=== PATIENT | male | born 1955 | race Two or more races ===

== ENCOUNTER 2024-01-21 16:42 | Emergency (ER) | payer MEDICARE, MEDICAID, SELFPAY ==
[2024-01-21 16:57] VITALS: BP 110/63; PULSE 97; RESP 18; TEMP 36.7; O2SAT 95; BMI 33.3
--- NOTE | 2024-01-21 17:08 | XR_ITS ---
Examination: CT brain head without contrast. 2-D sagittal coronal reconstructions Date and time of exam:January 21, 2024 at 1838 hours INDICATIONS: Headaches nausea vomiting one week CTDI: vol (mGy):50.9 DLP: (mGycm):977 Technique: Multiple CT axial sections of the brain have been obtained, 5 mm slice thickness. Contrast has not been administered. 2-D sagittal, coronal reconstructions have been obtained Low dose protocols were performed. One or more of the following dose reduction techniques were used; automated exposure control, adjustment of the mA and/or KV according to patient size, use of iterative reconstruction technique. Findings: No significant ventricular enlargement. Intra-axial or extra-axial hemorrhage density is not seen. No mass effect or midline shift Basal cisterns are not remarkable. Fourth ventricle is midline. Cranial vault intact. Impression: Negative for acute hemorrhage, mass effect or midline shift Advise clinical correlation and follow-up accordingly
--- NOTE | 2024-01-21 17:09 | EDNOTE_ITS ---
Nausea/Vomit./Diarrhea-RME/HPI General Chief complaint: Nausea/Vomiting/Diarrhea Stated complaint: dizziness, n/v, generalized weakness Time Seen by Provider: 01/21/24 16:51 Source: patient Arrival date/time: 01/21/24 16:42 68-year-old male with past medical history of hypertension and diabetes presents emergency department complaining of a headache, dizziness, nausea, and diarrhea after starting Ozempic a week ago. Patient denies any fever, chills, cough, shortness of breath, dysuria, abdominal pain, or any other associated symptom. Mode of arrival: ambulatory Limitations: no limitations Related Data Home Medications ?Medication ?Instructions ?Recorded ?Confirmed hydrochlorothiazide 12.5 mg capsule 12.5 mg PO QAM 08/30/21 lisinopril 20 mg tablet 20 mg PO QDAY 08/30/21 metformin 1,000 mg tablet 1,000 mg PO BID 08/30/21 Previous Rx's ?Medication ?Instructions ?Recorded capsaicin 0.1 % topical cream 1 applic topical TID PRN Severe 08/25/21 (Arthritis Pain Relief (capsaicin)) Shoulder pain #60 grams ibuprofen 800 mg tablet 800 mg PO Q8H PRN pain #30 tabs 08/25/21 acetaminophen 500 mg tablet 500 mg PO Q6H PRN pain #30 tabs 09/08/21 (Tylenol Extra Strength) ondansetron 4 mg disintegrating 4 mg PO Q8H PRN nausea and 01/21/24 tablet vomiting #10 tabs Allergies Allergy/AdvReac Type Severity Reaction Status Date / Time No Known Allergies Allergy Verified 01/21/24 16:43 Review of Systems Review of Systems Systems Reviewed: All systems reviewed, normal except as documented Constitutional Constitutional: Reports system reviewed and no additional complaints, except as documented, Denies body ache(s), Denies chills, Denies fever(s) and Reports headache(s) Eyes Eyes: Reports system reviewed and no additional complaints, except as documented and Denies change in vision ENT Ears, Nose, Mouth, and Throat: Reports system reviewed and no additional complaints, except as documented, Denies disequilibrium, Denies dizziness, Reports headache(s), Denies sore throat and Reports vertigo Cardiovascular Cardiovascular: Reports system reviewed and no additional complaints, except as documented, Denies chest pain and Denies dyspnea Respiratory Respiratory: Reports system reviewed and no additional complaints, except as documented, Denies chest congestion, Denies cough and Denies dyspnea Gastrointestinal Gastrointestinal: Reports system reviewed and no additional complaints, except as documented, Denies abdominal pain, Reports diarrhea, Reports nausea and Denies vomiting Musculoskeletal Musculoskeletal: Reports system reviewed and no additional complaints, except as documented, Denies abnormal gait and Denies arthralgias Integumentary/Breasts Skin/Breast: Reports system reviewed and no additional complaints, except as documented, Denies erythema, Denies rash and Denies wounds Neurologic Neurologic: Reports system reviewed and no additional complaints, except as documented, Denies abnormal gait, Denies disequilibrium, Denies dizziness, Reports headache(s) and Reports vertigo Past Medical History Past Medical History CARDIAC: Positive Hypercholesterolemia and Hypertension; Negative Congestive Heart Failure RESPIRATORY: Negative Chronic Obstructive Pulmonary Disease (COPD) GENITOURINARY: Negative Renal Disease ENDOCRINE: Positive Diabetes Mellitus Type 2; Negative Diabetes Mellitus Type 1 Social History SMOKING STATUS: Never smoker ED Exam General Limitations: Present no limitations General appearance: Present alert and in no apparent distress Head Head exam: Present atraumatic Eye Eye exam: Present normal appearance, PERRL and EOMI ENT ENT exam: Present normal exam, normal oropharynx and mucous membranes moist Neck Neck exam: Present normal inspection, full ROM and trachea midline Chest Chest inspection: Present normal inspection and symmetric chest wall rise Respiratory Respiratory exam: Present normal lung sounds bilaterally Cardiovascular Cardiovascular exam: Present regular rate, normal rhythm and normal heart sounds Abdominal Exam Abdominal exam: Present soft and normal bowel sounds; Absent tenderness, Dudley's sign or tenderness at McBurney's Point Extremities Exam Extremities exam: Present normal inspection and full ROM Back Exam Back exam: Present normal inspection and full ROM Neurological Exam Neurological exam: Present alert, oriented X3 and CN II-XII intact Psychiatric Psychiatric exam: Present normal affect and normal mood Skin Skin exam: Present warm, dry, intact and normal color Course Quality Measures none Orders Category Date Time Status Bedside COVID-19 Antigen Test NOW Care 01/21/24 17:08 Completed Bedside Influenza A&B Antigen Test NOW Care 01/21/24 17:[address] head/brain wo con Stat Exams 01/21/24 17:08 Completed CBC Stat Lab 01/21/24 17:24 Completed CMP [Comprehensive Metabolic Panel] Stat Lab 01/21/24 17:24 Completed Lipase Stat Lab 01/21/24 17:24 Completed Urinalysis, C/S if Indicated Stat Lab 01/21/24 17:23 Completed Vital Signs Vital signs: Vital Signs Temperature 98.1 F 01/21/24 16:57 Pulse Rate 97 01/21/24 16:57 Respiratory Rate 18 01/21/24 16:57 Blood Pressure 110/63 01/21/24 16:57 Pulse Oximetry (%) 95 01/21/24 16:57 Oxygen Delivery Method Room Air 01/21/24 16:57 95% RA WNL. Nausea/Vomiting/Diarrhea MDM Narrative MDM Narrative:: 68-year-old male with past medical history of hypertension and diabetes presents emergency department complaining of a headache, dizziness, nausea, and diarrhea after starting Ozempic a week ago. Patient denies any fever, chills, cough, shortness of breath, dysuria, abdominal pain, or any other associated symptom. CBC was unremarkable for any leukocytosis. CMP unremarkable other than mildly elevated lipase and elevated glucose the patient is diabetic. CT of head negative for any acute process Patient appears nontoxic and hemodynamically stable. Patient's abdomen is soft and nontender. Patient GCS of 15 with steady gait. Patient discharged instructed to have close follow-up with primary care provider and discuss Ozempic dose might need to be tapered down. Instructed to return to emergency department for any worsening symptoms or as needed. Patient data External records reviewed:: [facility] previous records Clinical information provided by:: patient Social determinants that could affect healthcare access:: none Patient has the following chronic illnesses:: See chart How is presenting disease/condition affected by chronic disease/condition?: uneffected by Evaluation data The following diagnostics were reviewed and interpreted by me:: lab results and radiology exam(s) Lab and/or radiology exams considered but not ordered:: Ordered Interpretation Summary: Interpreted by me Medications / Prescriptions Medications / Prescriptions considered but not ordered:: N/A Medication administrations:: n/a Consultations Consultation(s) initiated? (list below): No Diagnosis Nausea Differential Diagnosis: traveler's diarrhea, food poisoning, gastroenteritis, drug-induced nausea and vomiting and dehydration Most likely diagnosis given after review of the tests above:: Nausea and vomiting Admission Indicated Admission indicated?: not indicated Admission Request Was there a request for admission?: No Disposition Plan Disposition Plan: Discharge Discharge Attestation Discharge Attestation: The patient and all family members were given an opportunity to ask questions and understood the discharge instructions. Discharge instructions specifically effects, indications for sooner follow up or return to the emergency department, and the expected course of current diagnosis. Patient condition: Stable Discharge Plan Plan Patient Disposition: HOME (Self Care) Disposition Comment: Stable Prescriptions/Referrals Prescriptions/Med Rec: New ondansetron 4 mg tablet,disintegrating 4 mg PO Q8H PRN (Reason: nausea and vomiting) Qty: 10 0RF No Action metformin 1,000 mg tablet 1,000 mg PO BID lisinopril 20 mg tablet 20 mg PO QDAY hydrochlorothiazide 12.5 mg capsule 12.5 mg PO QAM ibuprofen 800 mg tablet 800 mg PO Q8H PRN (Reason: pain) Qty: 30 0RF capsaicin [Arthritis Pain Relief(capsaic)] 0.1 % cream 1 applic topical TID PRN (Reason: Severe Shoulder pain) Qty: 60 1RF Rx Instructions: do not wash area for at least 30 min after application acetaminophen [Tylenol Extra Strength] 500 mg tablet 500 mg PO Q6H PRN (Reason: pain) Qty: 30 0RF Referrals: No Primary/Family,Physician [Referring Provider] - In 1 week Problem List Clinical Impression: Nausea & vomiting Patient/Caregiver Discharge Instructions Education Materials: Self-Care for Vomiting and Diarrhea, ED Diet for Vomiting or ... Additional Instructions: Take medication as prescribed. Please follow-up with primary care provider in 24 to 48 hours for possible change in dosage to Ozempic medication. Drink plenty of fluids and stay hydrated. Return to the emergency department for any worsening symptoms or as needed. Print Language: Jordanian Stand Alone Forms: [employer] Award Info., Patient Portal Info Letter Attestation Attestation The patient was seen by the midlevel practitioner. I, the co-signing physician, was present during the entire ER visit. While I did not physically examine the patient, I was available for consultation as needed.
[2024-01-21 17:36] LABS: Collection Type, Urine Clean Catch
[2024-01-21 18:09] LABS: Bilirubin,Urine Negative (Negative); Blood,Urine Negative (Negative); Clarity,Urine Clear (Clear/Hazy); Color,Urine Lt-Yellow (Lt Yel-Yel); Culture Indicated,Urine Not Indicated; Glucose, Urine 4+ (Negative); Ketones,Urine Negative (Negative); Leukocyte Esterase,Urine Positive (Negative); Nitrite,Urine Negative (Negative); Protein,Urine Negative (Neg - Trace); RBC,Urine < 1 /hpf (0-3); Specific Gravity,Urine 1.029 (1.001-1.035); Squamous Epithelial Cell,Urine 1 /hpf (0-5); Urobilinogen,Urine Negative mg/dL (0.0-1.0); WBC,Urine 7 /hpf (0-5)
[2024-01-21 18:10] LABS: Basophils # (Auto) 0.1 Thou/mm3 (0.0-0.2); Basophils % (Auto) 1 % (0-2.5); Eosinophils # (Auto) 0.2 Thou/mm3 (0.0-0.5); Eosinophils % (Auto) 2 % (0-10); Hematocrit 43.1 % (41.0-53.0); Hemoglobin 15.3 g/dL (13.5-16.0); Immature Granulocytes % (Auto) 0 % (0-0); Immature Granulocytes Auto 0.02 Thou/mm3 (0.00-0.00); Lymphocytes # (Auto) 2.8 Thou/mm3 (1.0-4.8); Lymphocytes % (Auto) 31 % (10-50); Mean Corpuscular HGB Conc 35.5 g/dl (31.0-37.0); Mean Corpuscular Volume 82 fL (80-100); Monocytes # (Auto) 0.8 Thou/mm3 (0.0-0.8); Monocytes % (Auto) 9 % (0-12); Neutrophils # (Auto) 5.2 Thou/mm3 (1.8-7.7); Neutrophils % (Auto) 58 % (37-80); Nucleated Red Blood Cell % 0 /100 WBC (0); Platelet Count 304 Thou/mm3 (140-440); RDW Standard Deviation 38.4 fL (35.1-43.9); Red Blood Count 5.28 Miln/mm3 (4.50-5.90); White Blood Count 9.1 Thou/mm3 (3.8-10.6)
[2024-01-21 18:30] LABS: Alanine Aminotransferase 27 U/L (10-49); Albumin, Serum 4.7 gm/dL (3.4-4.8); Albumin/Globulin Ratio 1.4 (1.2-2.2); Alkaline Phosphatase 84 U/L (46-116); Anion Gap 14 (7-16); Aspartate Amino Transferase 35 U/L (0-34); BUN/Creatinine Ratio 18 Ratio (12-20); Bilirubin,Total 0.7 mg/dL (0.3-1.2); Blood Urea Nitrogen 24 mg/dL (9-23); Calcium 10.1 mg/dL (8.3-10.6); Calcium (Corrected) 10.1 mg/dL (8.5-10.1); Carbon Dioxide 22.8 mMol/L (20.0-31.0); Chloride 94 mMol/L (98-107); Creatinine (Component) 1.3 mg/dL (0.6-1.3); Estimated Creatinine Clearance 54.8 mL/min (>60); Globulin 3.3 gm/dL (2.3-3.5); Glucose 206 mg/dL (74-106); Lipase 69 U/L (12-53); Osmolality,Calculated 272 (275-295); Potassium 4.1 mMol/L (3.4-5.1); Sodium 131 mMol/L (136-145); eGFR 59 See Note
[2024-01-21 20:10] VITALS: BP 136/45; PULSE 87; RESP 19; TEMP 36.6; O2SAT 99
== END 2024-01-21 20:10 | disposition home or self-care (01) ==
PROVIDERS: Emergency Provider Emergency Medicine; PCP Family Medicine
DX: R11.2 Nausea with vomiting, unspecified (principal); R51.9 Headache, unspecified
CPT/HCPCS: 36415; 70450; 80053; 81001; 83690; 85025; 87400; 87811; 99284